=== PATIENT | female | born 1990 | race Caucasian/White ===

== ENCOUNTER 2017-05-25 17:03 | Emergency (ER) | payer OTHER ==
[2017-05-25 17:19] VITALS: BP 135/83; PULSE 103; O2SAT 100
[2017-05-25] MEDS ORDERED: Celestone Soluspan 6MG/ML IM ONE (17:25)
[2017-05-25] MEDS ORDERED: TORAdol 30 mg Injection IM ONE (17:25)
[2017-05-25] MEDS ORDERED: TORAdol 30 mg Injection ONE (17:26)
[2017-05-25] MEDS ORDERED: Celestone Soluspan 6MG/ML ONE (17:27)
--- NOTE | 2017-05-25 17:31 | ERPHSYRPT ---
- History of Present Illness Time Seen by Provider: 05/25/17 17:04 Source: patient Patient Subjective Stated Complaint: having lower back pain since last night. denies any injury. states has not voided much today. Triage Nursing Assessment: walked to room per self. guarding lower back. skin w/d, color normal. resp easy. no areas of injury noted to lower back. states has tried motrin and tylenol without relief. Physician History: CC: back pain Hx: 26 y/o patient with low back pain, worse on left. Worse with movement. Some pain radiates to the left leg. Chronic tingling in toes for 6 months is unchanged. No fall or injury. No fever or chills. No hx of CA. States not as she has mirena. is working in [employer] in [employer]. She had prior back pain 4 years ago but avoided surgery. Timing/Duration: yesterday Method of Injury: unknown Quality: dull, radiating (left leg) Back Pain Location: lumbar spine Severity of Pain-Max: severe Severity of Pain-Current: severe Hx Tetanus, Diphtheria Vaccination/Date Given: No Hx Influenza Vaccination/Date Given: No Hx Pneumococcal Vaccination/Date Given: No - Review of Systems Constitutional: No Fever, No Chills Eyes: No Symptoms Ears, Nose, & Throat: No Symptoms Respiratory: No Cough Abdominal/Gastrointestinal: No Abdominal Pain Genitourinary Symptoms: No Dysuria, No Frequency, No Incontinence, No Musculoskeletal: Back Pain Skin: No Rash Neurological: No Focal Weakness, No Headache, No Parasthesia All Other Systems: Reviewed and Negative - Past Medical History Pertinent Past Medical History: Yes Other Medical History: herniated disc 2011 - Past Surgical History Past Surgical History: Yes Female Surgical History: Section - Social History Smoking Status: Current every day smoker How long have you smoked: 10 Exposure to second hand smoke: No Drug Use: none Patient Lives Alone: No (drove self here, has two children in her care) - Female History Hx Last Menstrual Period: one year ago - Nursing Vital Signs Nursing Vital Signs: Initial Vital Signs Temperature 98.8 F 05/25/17 17:09 Pulse Rate 103 H 05/25/17 17:09 Respiratory Rate 16 05/25/17 17:09 Blood Pressure 135/83 05/25/17 17:09 O2 Sat by Pulse Oximetry 100 05/25/17 17:09 Pain Scale Pain Intensity 7 - Physical Exam General Appearance: alert Eye Exam: PERRL/EOMI Ears, Nose, Throat Exam: normal ENT inspection, moist mucous membranes Neck Exam: normal inspection, non-tender, supple Respiratory Exam: normal breath sounds Cardiovascular Exam: regular rate/rhythm Gastrointestinal Exam: soft, No tenderness, No distention Back Exam: normal inspection, point tenderness (left SI), No vertebral tenderness Extremity Exam: normal inspection, normal range of motion Neurologic Exam: alert, oriented x 3, cooperative, sensation nml, No motor deficits Skin Exam: warm, dry, No rash SpO2 Interpretation: normal SpO2: 100 Oxygen Delivery: Room Air - Course Nursing assessment & vital signs reviewed: Yes - Progress Progress Note: 05/25/17 17:29 Sciatica treatment indicated. Rx norflex and motrin. IM celestone and toradol given here for symptoms. Counseled pt/family regarding: diagnosis, need for follow-up - Departure Time of Disposition: 17:30 Departure Disposition: Home Clinical Impression: Sciatica of left side associated with disorder of lumbar spine Condition: Stable Critical Care Time: No Referrals: JULIA CHRISTIANSEN FNP [Primary Care Provider] - Instructions: Back Pain With Sciatica Additional Instructions: BACK INJURY 1. May apply moist heat frequently for relief of pain. Take care not to burn the skin. Do not use heat for more than 30 minutes at a time. 2. Try to sleep on a firm bed, flat on your back. 3. If no improvement is noticed in 2-3 days, follow up with your family physician. 4. If you notice any numbness, tingling, weakness, or problems with your bowel or bladder, you should call your family physician or return to the emergency department. Rx norflex. Rx motrin=ibuprofen 600mg every 6 hours for pain. Prescriptions: Ibuprofen 1 tab PO Q6H PRN PRN #24 tablet PRN Reason: pain Orphenadrine Citrate 100 mg [Norflex 100 MG Tablet] 1 tab PO BID #10 tab
== END 2017-05-25 17:52 | disposition home or self-care (01) ==
LOC: ED 17:03
DX: M54.32 Sciatica, left side (principal); M54.5 Low back pain
CPT/HCPCS: 96372; 99284; J0702; J1885

== ENCOUNTER 2017-08-08 20:36 | Emergency (ER) | payer OTHER ==
[2017-08-08] MEDS ORDERED: Ativan 2 MG/1 ML VIAL IM ONE (21:10)
[2017-08-08] MEDS ORDERED: Ativan 2 MG/1 ML VIAL ONE (21:14)
--- NOTE | 2017-08-08 21:19 | ERPHSYRPT ---
- History of Present Illness Time Seen by Provider: 08/08/17 21:16 Source: patient Exam Limitations: no limitations Patient Subjective Stated Complaint: pt states she has been having shortness of breath and feels like she isnt able to get a deep breath. states she has had a lot of stress lately and has hx of panic attack Triage Nursing Assessment: pt alert and oriented, answers questions approp. pt ambulatory with steady gait noted. respriations nonlabored, lungs cta. sinus rhythm in 70's on monitor. Physician History: pt states she has been having shortness of breath and feels like she isnt able to get a deep breath. states she has had a lot of stress lately and has hx of panic attack. No fever, chills, nausea, vomiting Timing/Duration: day(s) Possible Cause: no prior episodes Associated Symptoms: anxiety International travel in last 2 weeks: No Allergies/Adverse Reactions: No Known Drug Allergies Allergy (Verified 08/08/17 20:51) Home Medications: Buspirone HCl 5 mg [Buspar 5 mg] 5 mg PO TID 08/08/17 [History] Trazodone HCl 50 mg [Desyrel 50 mg] 50 mg PO HS 08/08/17 [History] Hx Tetanus, Diphtheria Vaccination/Date Given: Yes Hx Influenza Vaccination/Date Given: No Hx Pneumococcal Vaccination/Date Given: No Immunizations Up to Date: No - Review of Systems Constitutional: No Fever, No Chills Eyes: No Symptoms Ears, Nose, & Throat: No Symptoms Respiratory: No Cough, No Dyspnea, No Dyspnea on Exertion (SCOTT), No Stridor, No Wheezing Cardiac: No Chest Pain, No Edema, No Syncope Abdominal/Gastrointestinal: No Abdominal Pain, No Nausea, No Vomiting, No Diarrhea Genitourinary Symptoms: No Dysuria Musculoskeletal: No Back Pain, No Neck Pain Skin: No Rash Neurological: No Dizziness, No Focal Weakness, No Sensory Changes Psychological: No Symptoms, Anxiety, Emotional Lability Endocrine: No Symptoms All Other Systems: Reviewed and Negative - Past Medical History Pertinent Past Medical History: Yes Psycho-Social History: Anxiety, Depression Other Medical History: herniated disc 2012. depression and anxiety recently - Past Surgical History Past Surgical History: Yes Female Surgical History: Section - Social History Smoking Status: Current every day smoker How long have you smoked: 10 Exposure to second hand smoke: No Drug Use: none Patient Lives Alone: No - Female History Hx Last Menstrual Period: mirena - Nursing Vital Signs Nursing Vital Signs: Initial Vital Signs Temperature 98.1 F 08/08/17 20:41 Pulse Rate 75 08/08/17 20:41 Respiratory Rate 18 08/08/17 20:41 Blood Pressure 130/90 08/08/17 20:41 O2 Sat by Pulse Oximetry 99 08/08/17 20:41 Pain Scale Pain Intensity 0 - Physical Exam General Appearance: no apparent distress, alert Eye Exam: PERRL/EOMI Neck Exam: normal inspection, supple Cardiovascular/Chest Exam: normal heart sounds, regular rate/rhythm Abdominal/Gastrointestinal Exam: soft, No tenderness, No distention, No mass Extremity Exam: non-tender, normal range of motion, normal inspection, no calf tenderness, no pedal edema Neurologic Exam: alert, oriented x 3, cooperative, 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, sensation nml, No motor deficits Skin Exam: normal color, warm, No dry SpO2 Interpretation: normal SpO2: 99 Oxygen Delivery: Room Air - Course Nursing assessment & vital signs reviewed: Yes - Radiology Exams Chest X-ray Interpretation: Reviewed by me, Negative Ordered Tests: Active Orders 24 hr Category Date Time Status CHEST 2 VIEWS (PA AND LAT) Stat Exams 08/08/17 21:11 Taken CBC W DIFF Stat Lab 08/08/17 21:22 Completed CMP Stat Lab 08/08/17 21:22 Completed Medication Summary Discontinued Medications Generic Name Dose Route Start Last Admin Trade Name Fei PRN Reason Stop Dose Admin Lorazepam 2 mg 08/08/17 21:10 08/08/17 21:20 Ativan 2 Mg/1 Ml Vial IM 08/08/17 21:11 2 mg STAT ONE Administration Lorazepam Confirm 08/08/17 21:14 Ativan 2 Mg/1 Ml Vial Administered 08/08/17 21:15 Dose 2 mg .ROUTE .STK-MED ONE Lab/Rad Data: Laboratory Result Diagrams 08/08/17 21:22 08/08/17 21:22 Laboratory Results 08/08/17 08/08/17 Range/Units 21:22 21:22 WBC 10.8 H (4.0-10.5) K/mm3 RBC 5.08 (4.1-5.4) M/mm3 Hgb 15.0 (12.0-16.0) gm/dl Hct 44.1 (35-47) % MCV 86.8 (78-100) fl MCH 29.5 (26-32) pg MCHC 34.0 (32-36) g/dl RDW 12.9 (11.5-14.0) % Plt Count 291 (150-450) K/mm3 MPV 9.9 H (6-9.5) fl Gran % 73.5 H (36.0-66.0) % Lymphocytes % 19.5 L (24.0-44.0) % Monocytes % 5.8 (0.0-12.0) % Eosinophils % 0.7 (0.00-5.0) % Basophils % 0.5 (0.0-0.4) % Basophils # 0.05 (0-0.4) Sodium 140 (136-145) mEq/L Potassium 4.3 (3.5-5.1) mEq/L Chloride 105 (98-107) mEq/L Carbon Dioxide 24.3 (21-32) mEq/L Anion Gap 14.8 (5-15) MEQ/L BUN 16 (9-20) mg/dL Creatinine 0.97 (0.55-1.30) mg/dl Estimated GFR > 60 ML/MIN Glucose 93 (70-110) MG/DL Calcium 9.5 (8.5-10.1) mg/dL Total Bilirubin 0.80 (0.2-1.0) mg/dL AST 15 (15-37) U/L ALT 19 (12-78) U/L Alkaline Phosphatase 50 (46-116) U/L Serum Total Protein 7.9 (6.4-8.2) gm/dL Albumin 4.8 (3.4-5.0) g/dL - Progress Progress: improved Air Movement: good Blood Culture(s) Obtained: No Antibiotics given: No Counseled pt/family regarding: lab results, diagnosis, need for follow-up, rad results - Departure Time of Disposition: 22:09 Departure Disposition: Home Clinical Impression: Panic attack as reaction to stress Condition: Stable Critical Care Time: Yes Critical Care Time(excluding separately billable procedures): 30-74 minutes Referrals: DOCTOR,NO FAMILY [Primary Care Provider] - Instructions: Anxiety -- Adult, Panic Disorder
[2017-08-08 21:48] LABS: BASOPHIL % 0.5 % (0.0-0.4); Eosinophil % 0.7 % (0.00-5.0); Granulocytes % 73.5 % (36.0-66.0); Lymphocytes % 19.5 % (24.0-44.0); Mean Cell Volume 86.8 fl (78-100); Mean Corpuscular Hemoglobin 29.5 pg (26-32); Mean Platelet Volume 9.9 fl (6-9.5); Monocytes % 5.8 % (0.0-12.0); Platelet Count 291 K/mm3 (150-450); Red Blood Count 5.08 M/mm3 (4.1-5.4); Red Cell Distribution Width 12.9 % (11.5-14.0); White Blood Count 10.8 K/mm3 (4.0-10.5)
[2017-08-08 21:55] LABS: ALBUMIN 4.8 g/dL (3.4-5.0); ALKALINE PHOSPHATASE 50 U/L (46-116); ANION GAP 14.8 MEQ/L (5-15); BLOOD UREA NITROGEN 16 mg/dL (9-20); CHLORIDE 105 mEq/L (98-107); Carbon Dioxide 24.3 mEq/L (21-32); Glucose 93 MG/DL (70-110); Potassium 4.3 mEq/L (3.5-5.1); SGOT/AST 15 U/L (15-37); SGPT/ALT 19 U/L (12-78); SODIUM 140 mEq/L (136-145); Total Protein 7.9 gm/dL (6.4-8.2)
[2017-08-08 22:23] VITALS: BP 128/73; PULSE 79; O2SAT 100
--- NOTE | 2017-08-10 19:43 | XRAY ---
Indication: Short of breath and chest pressure. Comparison: None PA/lateral chest hyperinflated and clear. Heart and mediastinal structures within normal limits. Bony thorax intact. Impression: Nonacute hyperinflated chest.
== END 2017-08-08 22:18 | disposition home or self-care (01) ==
LOC: ED 20:36
DX: F41.0 Panic disorder [episodic paroxysmal anxiety] (principal); F43.0 Acute stress reaction
CPT/HCPCS: 36415; 71020; 80053; 85025; 96372; 96374; 99284; J2060

== ENCOUNTER 2019-12-31 12:56 | Emergency (ER) | payer MEDICAID, OTHER ==
--- NOTE | 2019-12-31 13:50 | ERPHSYRPT ---
- History of Present Illness Time Seen by Provider: 12/31/19 13:00 Source: patient Exam Limitations: no limitations Patient Subjective Stated Complaint: Pt fell going up the stairs at her home and hit her left side of face on handrail, and the back of the head is hurting and making her dizzy but she is unsure if she hit the back of her head today but she did fall a couple of months ago and did hit the back of her head and had severe dizziness from it Triage Nursing Assessment: Pt walked to the ER from home, pt's left cheek bone is bruised, head pain, pt states that she was home alone when she fell, hypertensive, tachycardic, tearful, states that she is really stressed and it's from the fall, pt reports feeling safe at home, pt denies any other injuries Physician History: This is a 29-year-old white female who walked from her home to the hospital emergency department. Patient states while she was doing laundry she fell hitting her head face and neck. Patient states this occurred just prior to arrival. Patient states, on several occasions, that she was alone and was not assaulted or hurt by anyone. I asked her, the nurses asked her on 2 occasions. Patient's response was she fell and was not assaulted and was home alone when this occurred. Patient states it is unclear whether she lost consciousness or not. There are no other complaints of pain or injury. Occurred: just prior to arrival Reason for Fall: fell from standing pos Injuries/Pain Location: head, face, neck Loss of Consciousness: unsure Quality: aching Severity of Pain-Max: mild Severity of Pain-Current: mild Associated Symptoms (Fall): headache, neck pain Allergies/Adverse Reactions: loracarbef [From Lorabid] Allergy (Verified 12/31/19 13:12) Hx Tetanus, Diphtheria Vaccination/Date Given: Yes Hx Influenza Vaccination/Date Given: No Hx Pneumococcal Vaccination/Date Given: No - Review of Systems Constitutional: No Symptoms Eyes: No Symptoms Ears, Nose, & Throat: No Symptoms Respiratory: No Symptoms Cardiac: No Symptoms Abdominal/Gastrointestinal: No Symptoms Genitourinary Symptoms: No Symptoms Musculoskeletal: Neck Pain, Fall, Injury Skin: No Symptoms Neurological: No Symptoms Psychological: No Symptoms Endocrine: No Symptoms Hematologic/Lymphatic: No Symptoms Immunological/Allergic: No Symptoms All Other Systems: Reviewed and Negative - Past Medical History Pertinent Past Medical History: Yes Neurological History: No Pertinent History ENT History: No Pertinent History Cardiac History: No Pertinent History Respiratory History: No Pertinent History Endocrine Medical History: No Pertinent History Musculoskeletal History: No Pertinent History GI Medical History: No Pertinent History History: No Pertinent History Psycho-Social History: Anxiety, Depression Other Medical History: herniated disc 2012. depression and anxiety recently - Past Surgical History Past Surgical History: Yes Neuro Surgical History: No Pertinent History Cardiac: No Pertinent History Respiratory: No Pertinent History Gastrointestinal: No Pertinent History Genitourinary: No Pertinent History Musculoskeletal: No Pertinent History Female Surgical History: Section - Social History Smoking Status: Current every day smoker How long have you smoked: 10 Exposure to second hand smoke: Yes Drug Use: none Patient Lives Alone: No - Female History Hx Last Menstrual Period: 2015 Hx Now: No (merena but poss moved) - Nursing Vital Signs Nursing Vital Signs: Initial Vital Signs Temperature 98.6 F 12/31/19 13:00 Pulse Rate 106 H 12/31/19 13:00 Blood Pressure 153/103 12/31/19 13:00 O2 Sat by Pulse Oximetry 96 12/31/19 13:00 Pain Scale Pain Intensity 7 - [place] Coma Score Best Eye Response ([place]): (4) open spontaneously Best Verbal Response ([place]): (5) oriented Best Motor Response ([place]): (6) obeys commands Ed Total: 15 - Physical Exam General Appearance: no apparent distress, alert, anxiety Head Injury: contusions (Left cheek), ecchymosis (Left cheek), swelling, No Josue's Sign, No lacerations, No raccoon eyes Eye Exam: PERRL/EOMI, eyes nml inspection ENT Exam: airway nml, nml ext.inspection Neck Exam: supple, trachea midline, full range of motion, normal alignment, normal inspection, muscle spasm, paraspinous muscle tender Respiratory/Chest Exam: normal breath sounds, respiratory distress, No chest tenderness Cardiovascular Exam: normal heart sounds, regular rate/rhythm Gastrointestinal Exam: soft, normal bowel sounds, tenderness Rectal Exam: not done Back Exam: normal inspection, normal range of motion, No CVA tenderness, No vertebral tenderness Extremity Exam: normal inspection, normal range of motion Neurologic Exam: alert, oriented x 3, cooperative, manager of software development II-XII nml as tested, depressed mood/affect Skin Exam: normal color, warm, dry SpO2 Interpretation: normal SpO2: 97 O2 Delivery: Room Air - Course Nursing assessment & vital signs reviewed: Yes Ordered Tests: Active Orders 24 hr Category Date Time Status CERVICAL SPINE WO CONTRAST [CT] Stat Exams 12/31/19 13:14 Completed FACIAL BONES WO CONTRAST [CT] Stat Exams 12/31/19 13:14 Completed HEAD WITHOUT CONTRAST [CT] Stat Exams 12/31/19 13:14 Completed - Progress Progress: unchanged Progress Note: 12/31/19 13:49 Patient walked into the emergency room on her own without any cervical spine protection. She was immediately placed in a cervical collar. 12/31/19 14:51 CAT scan of the head reveals no acute intracranial abnormalities. CAT scan of the face reveals no acute fractures. CAT scan of the cervical spine reveals no acute fractures or subluxation Counseled pt/family regarding: diagnosis, need for follow-up, rad results - Departure Departure Disposition: Home Clinical Impression: Fall, Contusion of face, Cervical muscle strain Condition: Stable Critical Care Time: No Referrals: DOCTOR,NO FAMILY [Primary Care Provider] - Additional Instructions: Use ice packs 3 times a day to areas of tenderness for 2 days. Use Tylenol and ibuprofen if not allergic for pain. Follow-up with your primary care physician if symptoms persist or worsen. Prescriptions: Carisoprodol 350 mg [Soma 350 mg] 350 mg PO Q8H PRN PRN #10 tablet PRN Reason: Muscle Spasms
--- NOTE | 2019-12-31 14:37 | XRAY ---
Exam: CT of the head without IV contrast from 12/31/2019. CTDI: 53.92 mGy. Comparison: CT of the head without IV contrast 07/11/2009. Indication: 29-year-old female with fall while walking upstairs. Technique: Non-IV contrast axial images were obtained through the brain. Reconstructed coronal and sagittal images were created and reviewed. Findings: The ventricles are of normal size and configuration. No focal mass effect or midline shift is seen. No acute intracranial bleed or abnormal extra-axial fluid collection is seen. The lopes matter-white matter interfaces appear unremarkable. No low attenuation territorial infarct is seen. The cortical sulci and basilar cisterns appear unremarkable. Calvarium of the skull appears intact without evidence of fracture. The visualized paranasal sinuses reveal minimal mucosal thickening within the right ethmoid sinus. No air-fluid levels are seen. The mastoid air cells appear clear. The orbits appear unremarkable. Impression: 1. No acute intracranial bleed or other acute intracranial process is seen. This is unchanged from 07/11/2009. 2. No fracture of the calvarium of the skull is seen.
--- NOTE | 2019-12-31 14:43 | XRAY ---
Exam: CT of the cervical spine without IV contrast from 12/31/2019. CTDI: 46.27 mGy. Comparison: Five-view cervical spine series from 07/11/2009. Indication: 29-year-old female fell while walking upstairs, complains of pain. Technique: Non-IV contrast axial images were obtained of the cervical spine. Reconstructed coronal and sagittal images were created and reviewed. Findings: I see no acute cervical spine fracture, AP subluxation, or prevertebral soft tissue swelling. There is some straightening of the cervical spine on the sagittal images which is nonspecific. Consider spasm. The C1-C2 relationship appears unremarkable. The cervical discs are well-maintained. I see no evidence of central cervical canal spinal stenosis or definite disc herniation. The neural foramen are patent bilaterally. The thyroid gland appears unremarkable. The visualized lung apices are clear. No abnormal cervical lymphadenopathy is seen. Impression: 1. No acute cervical spine fracture or AP traumatic subluxation is seen. 2. Straightening of the cervical spine on the sagittal images which is nonspecific. Consider spasm.
--- NOTE | 2019-12-31 14:47 | XRAY ---
Exam: CT of the facial bones without IV contrast from 12/31/2019. CTDI: 39.63 mGy. Comparison: None. Indication: 29-year-old female fell while walking up stairs. Technique: Non-IV contrast axial images were obtained to the facial bones. Reconstructed coronal and sagittal images were created and reviewed. Findings: I see no evidence of acute facial bone fracture. The zygomatic arches are intact. The orbital floors appear intact. The visualized paranasal sinuses are clear without air-fluid levels. The orbits appear grossly unremarkable. Impression: 1. No acute facial bone fracture is seen.
[2019-12-31 15:05] VITALS: BP 113/73; PULSE 67; O2SAT 100
== END 2019-12-31 15:06 | disposition home or self-care (01) ==
LOC: ED 12:56
DX: S00.83XA Contusion of other part of head, initial encounter (principal); S16.1XXA Strain of muscle, fascia and tendon at neck level, initial encounter; W18.30XA Fall on same level, unspecified, initial encounter; Y93.01 Activity, walking, marching and hiking; Y92.008 Other place in unspecified non-institutional (private) residence as the place of occurrence of the external cause; R51 Headache; M54.2 Cervicalgia
CPT/HCPCS: 70450; 70486; 72125; 99283

== ENCOUNTER 2020-01-18 14:44 | Emergency (ER) | payer MEDICAID ==
[2020-01-18] MEDS ORDERED: Vibramycin 100 MG PO ONE (15:09)
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
[2020-01-18] MEDS ORDERED: Vibramycin 100 MG ONE ×2 (15:31→15:35)
--- NOTE | 2020-01-18 16:27 | XRAY ---
Indication: Plantar pain following injury. Comparison: None 3 nonweightbearing views of the right foot demonstrates tiny 4th proximal phalanx bone island. No other bony, articular, or soft tissue abnormalities.
[2020-01-18 16:46] VITALS: BP 112/71; PULSE 94; O2SAT 97
== END 2020-01-18 17:41 | disposition home or self-care (01) ==
LOC: ED 14:44
DX: M79.671 Pain in right foot (principal); Y04.0XXA Assault by unarmed brawl or fight, initial encounter; Y93.89 Activity, other specified; Y92.89 Other specified places as the place of occurrence of the external cause; F41.9 Anxiety disorder, unspecified; F32.9 Major depressive disorder, single episode, unspecified; Z72.0 Tobacco use; R45.6 Violent behavior
CPT/HCPCS: 73630; 99283; A9270-GY

== ENCOUNTER 2020-08-15 14:13 | Emergency (ER) | payer MEDICAID, OTHER ==
[2020-08-15 14:41] LABS: Absolute Neutrophil Ct (ANC) 3.25 (1.4-6.9); BASOPHIL % 0.6 % (0.0-0.4); Basophil (Absolute #) 0.04 (0-0.4); Eosinophil % 3.7 % (0.00-5.0); Eosinophil (Absolute #) 0.24 (0-0.5); Hematocrit 41.9 % (35-47); Hemoglobin 13.7 gm/dl (12.0-16.0); Lymphocyte (Absolute #) 2.52 (1.0-4.6); Lymphocytes % 38.5 % (24.0-44.0); Mean Cell Volume 91.1 fl (78-100); Mean Corpuscular Hemoglobin 29.8 pg (26-32); Mean Corpuscular Hgb Concent. 32.7 g/dl (32-36); Mean Platelet Volume 9.6 fl (7.5-11.0); Monocyte (Absolute #) 0.49 (0.0-1.3); Monocytes % 7.5 % (0.0-12.0); Neutrophil % 49.7 % (36.0-66.0); Platelet Count 255 K/mm3 (150-450); Red Cell Distribution Width 13.7 % (11.5-14.0); White Blood Count 6.5 K/mm3 (4.0-10.5)
[2020-08-15 15:00] LABS: ALBUMIN 4.7 g/dL (3.5-5.0); BILIRUBIN,TOTAL 0.4 mg/dL (0.2-1.3); Calcium 9.2 mg/dL (8.4-10.2); Creatinine 1 1.35 mg/dL (0.52-1.04); EST GLOMERULAR FILTRATION RATE 48.6 ML/MIN; MAGNESIUM 2.2 mg/dL (1.6-2.3); NT PRO BNP 27.6 pg/mL (0-450); Potassium 4.3 mmol/L (3.5-5.1); Total Protein 7.4 g/dL (6.3-8.2)
[2020-08-15 15:38] VITALS: O2SAT 98
[2020-08-15 15:48] LABS: Amourphous Crystal FEW /HPF (NEGATIVE); Appearance SLIGHTLY CLOUDY (CLEAR); Bilirubin NEGATIVE (NEGATIVE); Blood NEGATIVE Ery/ul (0-5); Glucose NEGATIVE (NEGATIVE); Ketones NEGATIVE (NEGATIVE); Leukocyte Esterase NEGATIVE (NEGATIVE); Nitrite NEGATIVE (NEGATIVE); Protein,Urine Dip NEGATIVE (Negative); RBC 0-2 /HPF (0-2); Specific Gravity 1.021 (1.005-1.025); Urobilinogen NEGATIVE mg/dL (0-1)
--- NOTE | 2020-08-15 16:03 | ERPHSYRPT ---
- History of Present Illness Time Seen by Provider: 08/15/20 14:20 Historian: patient Exam Limitations: no limitations Patient Subjective Stated Complaint: chest pain/tightness Triage Nursing Assessment: pt to ED c/o L upper chest pain that radiates around to L shoulder x 2 days. rates 6/10 with breathing. alleviates with rest. asa taken this afternoon. heart sounds clear, lung sounds clear and equal bilaterally. abd soft and non tender. no cardiac hx in past. states pain has gotten more constant that when it started. Physician History: Patient is a 30-year-old female presents to our ED with complaints of left-sided chest pain. Chest pain started approximately 2 days ago. Pain described as an ache that tends to radiate to her left shoulder. Pain worse with deep inspiration. Pain improved with rest. Pain rated 6 out of 10. No associated nausea or vomiting. No diarrhea. No rash. No fever. No trauma. Symptoms are mild to moderate in intensity. Movement and palpation tend to worsen symptoms. Patient is otherwise healthy. She voices no other complaints or concerns at this time. Timing/Duration: day(s) (2 days ago) Activities at Onset: none Quality: aching Location: substernal (Left chest) Chest Pain Radiation: arm (Pain radiates to left shoulder.) Severity of Pain-Max: moderate Severity of Pain-Current: mild Modifying Factors: Improves With: movement Associated Symptoms: No nausea, No vomiting, No palpitations, No heartburn, No abdominal pain, No shortness of breath, No cough, No hurts to breathe, No diaphoresis, No chills, No fever, No fatigue, No weakness, No swelling/lump in chest, No syncope, No rash, No headache, No dizziness, No edema, No back pain Prior Chest Pain/Cardiac Workup: no prior chest pain Aspirin Treatment Today: no aspirin today Allergies/Adverse Reactions: loracarbef [From Lorabid] Allergy (Verified 08/15/20 14:26) Home Medications: Levonorgestrel [Mirena] 1 each IY UD 01/18/20 [History] Hx Tetanus, Diphtheria Vaccination/Date Given: Yes Hx Influenza Vaccination/Date Given: Yes Hx Pneumococcal Vaccination/Date Given: No Immunizations Up to Date: Yes Travel Risk - International Travel Have you traveled outside of the country in past 3 weeks: No - Coronavirus Screening Are you exhibiting any of the following symptoms?: No Close contact with a COVID-19 positive Pt in past 14-21 Days: No - Review of Systems Constitutional: No Symptoms, No Fever, No Chills Eyes: No Symptoms Ears, Nose, & Throat: No Symptoms Respiratory: No Symptoms, No Cough, No Dyspnea Cardiac: No Symptoms, No Chest Pain, No Edema, No Syncope Abdominal/Gastrointestinal: No Symptoms, No Abdominal Pain, No Nausea, No Vomiting, No Diarrhea Genitourinary Symptoms: No Symptoms, No Dysuria Musculoskeletal: No Symptoms, No Back Pain, No Neck Pain Skin: No Symptoms, No Rash Neurological: No Symptoms, No Dizziness, No Focal Weakness, No Sensory Changes Psychological: No Symptoms Endocrine: No Symptoms Hematologic/Lymphatic: No Symptoms Immunological/Allergic: No Symptoms All Other Systems: Reviewed and Negative - Past Medical History Pertinent Past Medical History: Yes Neurological History: No Pertinent History ENT History: No Pertinent History Cardiac History: No Pertinent History Respiratory History: No Pertinent History Endocrine Medical History: No Pertinent History Musculoskeletal History: No Pertinent History GI Medical History: No Pertinent History History: No Pertinent History Psycho-Social History: Anxiety, Depression Other Medical History: herniated disc 2012. depression and anxiety recently - Past Surgical History Past Surgical History: Yes Neuro Surgical History: No Pertinent History Cardiac: No Pertinent History Respiratory: No Pertinent History Gastrointestinal: No Pertinent History Genitourinary: No Pertinent History Musculoskeletal: No Pertinent History Female Surgical History: Section - Social History Smoking Status: Current every day smoker How long have you smoked: 10 Exposure to second hand smoke: Yes Drug Use: none Patient Lives Alone: No - Female History Hx Now: No (IUD) - Nursing Vital Signs Nursing Vital Signs: Initial Vital Signs Pulse Rate 88 08/15/20 14:16 Respiratory Rate 18 08/15/20 14:16 Blood Pressure 133/82 08/15/20 14:16 O2 Sat by Pulse Oximetry 96 08/15/20 14:16 Pain Scale Pain Intensity 6 - Physical Exam General Appearance: no apparent distress, alert Eye Exam: PERRL/EOMI, eyes nml inspection Ears, Nose, Throat Exam: normal ENT inspection, moist mucous membranes Neck Exam: normal inspection, non-tender, supple, full range of motion Respiratory Exam: normal breath sounds, lungs clear, No respiratory distress Cardiovascular Exam: regular rate/rhythm, normal heart sounds, other (Pain reproduced with palpation to the left anterior chest wall.) Gastrointestinal/Abdomen Exam: soft, No tenderness, No mass Back Exam: normal inspection, No CVA tenderness, No vertebral tenderness Extremity Exam: normal inspection, normal range of motion Neurologic Exam: alert, oriented x 3, cooperative, normal mood/affect, sensation nml, No motor deficits Skin Exam: normal color, warm, dry SpO2 Interpretation: normal SpO2: 98 O2 Delivery: Room Air - Course Nursing assessment & vital signs reviewed: Yes EKG Interpreted by Me: RATE, Sinus Rhythm, NORMAL AXIS, NORMAL INTERVALS Ordered Tests: Active Orders 24 hr Category Date Time Status Genetic Counselor STAT Care 08/15/20 14:33 Active EKG-ER Only STAT Care 08/15/20 14:32 Active IV Insertion STAT Care 08/15/20 14:32 Active Pulse Oximetry (ED) STAT Care 08/15/20 14:32 Active CHEST 1 VIEW (PORTABLE) Stat Exams 08/15/20 14:33 Taken CBC W DIFF Stat Lab 08/15/20 14:20 Completed CMP Stat Lab 08/15/20 14:20 Completed D-DIMER QUANTITATIVE Stat Lab 08/15/20 14:20 Completed HCG,QUALITATIVE URINE Stat Lab 08/15/20 15:28 Completed MAGNESIUM Stat Lab 08/15/20 14:20 Completed NT PRO BNP Stat Lab 08/15/20 14:20 Completed TROPONIN Q3H Lab 08/15/20 14:20 Completed TROPONIN Q3H Lab 08/15/20 17:45 Ordered TROPONIN Q3H Lab 08/15/20 20:45 Ordered TROPONIN Q3H Lab 08/15/20 23:45 Ordered TROPONIN Q3H Lab 08/16/20 02:45 Ordered UA W/RFX UR CULTURE Stat Lab 08/15/20 15:28 Completed Lab/Rad Data: Laboratory Result Diagrams 08/15/20 14:20 08/15/20 14:20 Laboratory Results 08/15/20 08/15/20 08/15/20 Range/Units 15:28 15:28 14:20 WBC (4.0-10.5) K/mm3 RBC (4.1-5.4) M/mm3 Hgb (12.0-16.0) gm/dl Hct (35-47) % MCV (78-100) fl MCH (26-32) pg MCHC (32-36) g/dl RDW (11.5-14.0) % Plt Count (150-450) K/mm3 MPV (7.5-11.0) fl Gran % (36.0-66.0) % Eos # (Auto) (0-0.5) Absolute Lymphs (auto) (1.0-4.6) Absolute Monos (auto) (0.0-1.3) Lymphocytes % (24.0-44.0) % Monocytes % (0.0-12.0) % Eosinophils % (0.00-5.0) % Basophils % (0.0-0.4) % Absolute Granulocytes (1.4-6.9) Basophils # (0-0.4) D-Dimer (215-500) ng/mL Sodium (137-145) mmol/L Potassium (3.5-5.1) mmol/L Chloride (98-107) mmol/L Carbon Dioxide (22-30) mmol/L Anion Gap (5-15) MEQ/L BUN (7-17) mg/dL Creatinine (0.52-1.04) mg/dL Estimated GFR ML/MIN Glucose (74-106) mg/dL Calcium (8.4-10.2) mg/dL Magnesium (1.6-2.3) mg/dL Total Bilirubin (0.2-1.3) mg/dL AST (14-36) U/L ALT (0-35) U/L Alkaline Phosphatase (38-126) U/L Troponin I < 0.012 (0.000-0.034) ng/mL NT-Pro-B Natriuret Pep (0-450) pg/mL Serum Total Protein (6.3-8.2) g/dL Albumin (3.5-5.0) g/dL Urine Color YELLOW (YELLOW) Urine Appearance SLIGHTLY CLOUDY (CLEAR) Urine pH 7.0 (5-6) Ur Specific [place] 1.021 (1.005-1.025) Urine Protein NEGATIVE (Negative) Urine Ketones NEGATIVE (NEGATIVE) Urine Blood NEGATIVE (0-5) Álvaro/ul Urine Nitrite NEGATIVE (NEGATIVE) Urine Bilirubin NEGATIVE (NEGATIVE) Urine Urobilinogen NEGATIVE (0-1) mg/dL Ur Leukocyte Esterase NEGATIVE (NEGATIVE) Urine WBC (Auto) NONE (0-5) /HPF Urine RBC (Auto) 0-2 (0-2) /HPF U Epithel Cells (Auto) NONE (FEW) /HPF Urine Bacteria (Auto) NONE (NEGATIVE) /HPF Amorphous Crystals FEW (NEGATIVE) /HPF Urine Culture Reflexed NO (NO) Urine Glucose NEGATIVE (NEGATIVE) mg/dL Urine HCG, Qual NEGATIVE (Negative) 08/15/20 08/15/20 08/15/20 Range/Units 14:20 14:20 14:20 WBC 6.5 (4.0-10.5) K/mm3 RBC 4.60 (4.1-5.4) M/mm3 Hgb 13.7 (12.0-16.0) gm/dl Hct 41.9 (35-47) % MCV 91.1 (78-100) fl MCH 29.8 (26-32) pg MCHC 32.7 (32-36) g/dl RDW 13.7 (11.5-14.0) % Plt Count 255 (150-450) K/mm3 MPV 9.6 (7.5-11.0) fl Gran % 49.7 (36.0-66.0) % Eos # (Auto) 0.24 (0-0.5) Absolute Lymphs (auto) 2.52 (1.0-4.6) Absolute Monos (auto) 0.49 (0.0-1.3) Lymphocytes % 38.5 (24.0-44.0) % Monocytes % 7.5 (0.0-12.0) % Eosinophils % 3.7 (0.00-5.0) % Basophils % 0.6 (0.0-0.4) % Absolute Granulocytes 3.25 (1.4-6.9) Basophils # 0.04 (0-0.4) D-Dimer 240 (215-500) ng/mL Sodium 139 (137-145) mmol/L Potassium 4.3 (3.5-5.1) mmol/L Chloride 106 (98-107) mmol/L Carbon Dioxide 27 (22-30) mmol/L Anion Gap 10.0 (5-15) MEQ/L BUN 19 H (7-17) mg/dL Creatinine 1.35 H (0.52-1.04) mg/dL Estimated GFR 48.6 ML/MIN Glucose 97 (74-106) mg/dL Calcium 9.2 (8.4-10.2) mg/dL Magnesium 2.2 (1.6-2.3) mg/dL Total Bilirubin 0.40 (0.2-1.3) mg/dL AST 29 (14-36) U/L ALT 24 (0-35) U/L Alkaline Phosphatase 45 (38-126) U/L Troponin I (0.000-0.034) ng/mL NT-Pro-B Natriuret Pep 27.6 (0-450) pg/mL Serum Total Protein 7.4 (6.3-8.2) g/dL Albumin 4.7 (3.5-5.0) g/dL Urine Color (YELLOW) Urine Appearance (CLEAR) Urine pH (5-6) Ur Specific [place] (1.005-1.025) Urine Protein (Negative) Urine Ketones (NEGATIVE) Urine Blood (0-5) Álvaro/ul Urine Nitrite (NEGATIVE) Urine Bilirubin (NEGATIVE) Urine Urobilinogen (0-1) mg/dL Ur Leukocyte Esterase (NEGATIVE) Urine WBC (Auto) (0-5) /HPF Urine RBC (Auto) (0-2) /HPF U Epithel Cells (Auto) (FEW) /HPF Urine Bacteria (Auto) (NEGATIVE) /HPF Amorphous Crystals (NEGATIVE) /HPF Urine Culture Reflexed (NO) Urine Glucose (NEGATIVE) mg/dL Urine HCG, Qual (Negative) - Progress Progress: improved Air Movement: good Progress Note: 08/15/20 16:19 Patient reassessed. She feels well. No active pain. However movement and palpation the chest wall reproduce symptoms. D-dimer negative. Troponin negative. Chest x-ray negative for acute pathology. Creatinine elevated at 1.3 5. Patient advised to follow-up with her primary care doctor to reassess her creatinine. Patient agrees to follow-up with her primary care doctor within 48 hours for reevaluation. Patient advised smoking cessation. 08/15/20 16:20 Blood Culture(s) Obtained: No Antibiotics given: No Counseled pt/family regarding: lab results, diagnosis, need for follow-up, rad results, smoking cessation - Departure Departure Disposition: Home Clinical Impression: Acute renal injury, Chest wall pain Condition: Stable Critical Care Time: No Referrals: DOCTOR,NO FAMILY [Primary Care Provider] - FRANCIS FINCH [ACTIVE STAFF] - Additional Instructions: Please be sure to follow-up with your family doctor for reassessment of your chest wall pain and your abnormal kidney function. Discharge/Care Plan STEFANO WRIGHT RICHARDSON was seen on 08/15/20 in the Emergency Room. The patient was counseled regarding Diagnosis,Lab results, Imaging studies, need for follow up and when to return to the Emergency Room. Prescriptions given: Discharge Note I have spoken with the patient and/or caregivers. I have explained the patient's condition, diagnosis and treatment plan based on the information available to me at this time. I have answered the patient's and/or caregiver's questions and addressed any concerns. The patient and/or caregivers have as good understanding of the patient's diagnosis, condition and treatment plan as can be expected at t his point. The vital signs have been stable. The patient's condition is stable and appropriate for discharge from the emergency department. The patient will pursue further outpatient evaluation with the primary care physician or other designated or consulting physician as outlined in the discharge instructions. The patient and/or caregivers are agreeable to this plan of care and follow-up instructions have been explained in detail. The patient and/or caregivers have received these instruction. The patient/and or caregivers are aware that any significant change in condition or worsening of symptoms should prompt an immediate return to this or the closest emergency department or call 911.
[2020-08-15 16:04] VITALS: BP 120/72; PULSE 80
--- NOTE | 2020-08-15 16:31 | XRAY ---
Indication: Chest pain. Comparison: August 08, 2017. Portable chest again demonstrates normal heart, lungs, and bony thorax.
== END 2020-08-15 16:33 | disposition home or self-care (01) ==
LOC: ED 14:13
DX: R07.89 Other chest pain (principal)
CPT/HCPCS: 36000; 36415; 71045; 80053; 81001; 83735; 83880; 84484; 84703; 85025; 85379; 93005; 93041; 94760; 99284

== ENCOUNTER 2021-01-13 16:52 | Emergency (ER) | payer OTHER ==
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
[2021-01-13 18:05] VITALS: BP 123/81; PULSE 81
[2021-01-13 18:23] VITALS: O2SAT 100
--- NOTE | 2021-01-13 20:16 | XRAY ---
Indication: Pain following head injury/trauma. Multiple contiguous axial images obtained through the head without contrast. Comparison: December 31, 2019. Normal appearing brain parenchyma, ventricles, and bony calvarium. Visualized paranasal sinuses and mastoid air cells are clear. Impression: Continued normal CT head without contrast exam. Comment: Preliminary interpretation was made by [facility]. No critical discrepancy.
== END 2021-01-13 18:26 | disposition home or self-care (01) ==
LOC: ED 16:52
DX: S00.93XA Contusion of unspecified part of head, initial encounter (principal); Y04.0XXA Assault by unarmed brawl or fight, initial encounter; R51.9 Headache, unspecified
CPT/HCPCS: 70450; 99283

== ENCOUNTER 2021-03-27 22:21 | Emergency (ER) | payer OTHER ==
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
[2021-03-27 23:38] VITALS: BP 102/72; PULSE 91; O2SAT 96
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
== END 2021-03-27 23:40 | disposition home or self-care (01) ==
LOC: ED 22:21
DX: S00.01XA Abrasion of scalp, initial encounter (principal); W22.01XA Walked into wall, initial encounter; Y93.89 Activity, other specified; Y92.89 Other specified places as the place of occurrence of the external cause; F41.8 Other specified anxiety disorders; Z72.89 Other problems related to lifestyle; F12.90 Cannabis use, unspecified, uncomplicated
CPT/HCPCS: 70450; 84703; 99284